=== PATIENT | male | born 1955 | race Caucasian/White ===

== ENCOUNTER 2018-05-06 09:58 | Outpatient (CLI) | payer OTHER ==
[~2018-05-06 09:58] MED LIST: NORVASC2.5 M1; TOPROL XL25 M1
== END 2018-05-06 10:30 | disposition home or self-care (01) ==
LOC: NUCLEAR 09:58
DX: M86.659 Other chronic osteomyelitis, unspecified thigh (principal); M86.651 Other chronic osteomyelitis, right thigh
CPT/HCPCS: 78306; A9503

== ENCOUNTER 2018-11-07 19:10 | Inpatient (IN) | payer OTHER ==
[~2018-11-07] VITALS: Ht 170.2 cm; Wt 90.7 kg
[2018-11-07] MEDS ORDERED: DIAZEPAM10 MG PO (20:52)
[2018-11-07] MEDS ORDERED: ATORVASTATIN CA40 MG PO (20:52)
[2018-11-07] MEDS ORDERED: PANTOPRAZOLE SO40 MG PO (20:52)
[2018-11-07] MEDS ORDERED: AMITRIPTYLINE H10 MG PO (20:53)
[2018-11-07] MEDS ORDERED: MORPHINE SULFAT30 M7 PO (20:53)
[2018-11-07] MEDS ORDERED: VALSARTAN160 MG PO (20:53)
[2018-11-07] MEDS ORDERED: COZAAR100 MG PO (20:54)
[2018-11-07] MEDS ORDERED: HYDRALAZINE HCL25 MG PO (20:54)
--- NOTE | 2018-11-07 20:55 | NUR ---
SE RECIBE PTE ALERTA Y ORIENTADO EN PERSONA, PTE VIENE EN AMBULANCIA POR SOB. SE LE REALIZAN LA RITA DE SIGNOS VITALES LOS CUALES SE ENCONTRARON PULSO EN 155 Y SATURACION EN 51%. SE LE NOTIFICANN VITALES A . SE COLOCA A PTE A MONITOR CARDIACO Y OXIMETRIA DE PULSO.
--- NOTE | 2018-11-08 02:30 | NUR ---
SE RECIBE PTE ALERTA Y ORIENTADO EN LAS 3 ESFERAS, PALIDO Y SUDOROSO AL AREA DE DOLOR DE PECHO TRANSFERIDO DEL AREA DE OBSERVACION. SE OBSERVA A PTE EN DISTRESS RESPIRATORIO HACIENDO USO DE MUSCULOS ACCESORIOS PARA RESPIRAR. SE UBICA A PTE EN CAMA CON BARANDAS ELEVADAS POR SEGURIDAD, SE CONECTA A MONITOR CARDIACO CON PULSO REGULAR CON UN RITMO CARDIACO DE 140/MIN Y A OXIMETRIA DE PULSO PRESENTANDO 70% DE SATURACION DE OXIGENO. RECIBIENDO IV'S 0.9NSS BAJANDO KVO Y CARDIZEM 100MG/100 0.9NSS BAJANDO A 8ML/HR POR VENOPUNCIONES EN BRAZO DERECHO, LAS CUALES SE OBSERVAN VIVI DE EDEMA Y ERITEMA. SONDA URINARIA DRENANDO A GRAVEDAD 300ML DE ORINA COLOR JERRY. SE MIDEN SIGNOS VITALES, SE NOTIFICA A QUE PTE PRESENTA 70% DE SATURACION, INDICA QUE SE ADMINISTREN LAS TERAPIAS RESPIRATORIAS A PTE. SE NOTIFICA QUE PTE PRESENTA B/P:116/86, REFIERE ADMINISTRAR TRIDIL 50M/250ML A BAJAR A 1ML/HR. SE ADMINISTRA MEDICAMENTO SHARI ORDEN MEDICA. SE COLECTAN MUESTRAS DE LABORATORIO BAJO MEDIDAS ASEPTICAS Y SE ENVIAN AL LABORATORIO. SE CRUZ A PTE EN CAMA CON BARANDAS ELEVADAS POR SEGURIDAD Y SE MENTIENE EN OBSERVACION POR CAMBIOS EN CONDICION MEDICA.
== END 2018-11-16 04:45 | disposition expired | DRG 166 ==
LOC: ER 19:10 → ICU-2 11-08 07:02
PROVIDERS: ADMIT Student in an Organized Health Care Education/Training Program
PROC: 0BH17EZ Insertion of Endotracheal Airway into Trachea, Via Natural or Artificial Opening (ICD-10-PCS; 2018-11-08)
PROC: 5A1955Z Respiratory Ventilation, Greater than 96 Consecutive Hours (ICD-10-PCS; 2018-11-08)
PROC: 4A033R1 Measurement of Arterial Saturation, Peripheral, Percutaneous Approach (ICD-10-PCS; 2018-11-08)
PROC: 3E0F7GC Introduction of Other Therapeutic Substance into Respiratory Tract, Via Natural or Artificial Opening (ICD-10-PCS; 2018-11-08)
PROC: B246ZZZ Ultrasonography of Right and Left Heart (ICD-10-PCS; 2018-11-08)
PROC: BT43ZZZ Ultrasonography of Bilateral Kidneys (ICD-10-PCS; 2018-11-09)
PROC: 0JB70ZZ Excision of Back Subcutaneous Tissue and Fascia, Open Approach (ICD-10-PCS; principal; 2018-11-13)
PROC: 0DH67UZ Insertion of Feeding Device into Stomach, Via Natural or Artificial Opening (ICD-10-PCS; 2018-11-14)
PROC: 3E0G76Z Introduction of Nutritional Substance into Upper GI, Via Natural or Artificial Opening (ICD-10-PCS; 2018-11-14)
PROC: 02HV33Z Insertion of Infusion Device into Superior Vena Cava, Percutaneous Approach (ICD-10-PCS; 2018-11-14)
DX: J96.01 Acute respiratory failure with hypoxia (principal); I21.4 Non-ST elevation (NSTEMI) myocardial infarction; R65.20 Severe sepsis without septic shock; A41.1 Sepsis due to other specified staphylococcus; J15.5 Pneumonia due to Escherichia coli; J15.0 Pneumonia due to Klebsiella pneumoniae; I47.1 Supraventricular tachycardia; N17.8 Other acute kidney failure; E87.0 Hyperosmolality and hypernatremia; E87.2 Acidosis; J96.02 Acute respiratory failure with hypercapnia; I71.4 Abdominal aortic aneurysm, without rupture; E86.0 Dehydration; I48.0 Paroxysmal atrial fibrillation; L89.152 Pressure ulcer of sacral region, stage 2; I46.9 Cardiac arrest, cause unspecified; Z74.01 Bed confinement status